=== PATIENT | female | born 1940 | race Caucasian/White ===

== ENCOUNTER 2016-11-06 09:10 | Inpatient (IN) | payer MEDICARE, BC, OTHER ==
[~2016-11-06] VITALS: Ht 152.4 cm; Wt 63.3 kg
[2016-11-06] VITALS (12 sets, daily range): BP systolic 70–180; BP diastolic 30–78
[2016-11-06] MEDS ORDERED: NS 500 ML IV ONE (09:30)
[2016-11-06] MEDS ORDERED: METO1TAB7 PO (10:15)
[2016-11-06] MEDS ORDERED: METH1TAB40 PO (10:15)
[2016-11-06] MEDS ORDERED: ATOR1TAB21 PO (10:15)
[2016-11-06] MEDS ORDERED: ASPI81TA85 PO (10:15)
[2016-11-06] MEDS ORDERED: ALEV220T26 PO (10:15)
--- NOTE | 2016-11-06 10:15 | REP ---
CT study brain without contrast: History: Altered mental status. CT findings: Digital hog trader radiograph is unremarkable. Bone window settings demonstrate an intact bony calvarium. There is fairly heavy vascular calcification in the distal vertebral and distal carotid arteries. There is mild to moderate diffuse cerebral atrophy. There is an old lacunar infarct in the basal ganglia on the left. Prominent small vessel atherosclerotic low density changes are seen in the periventricular white matter of the frontal lobes bilaterally. There is no evidence of acute infarction. No hemorrhage is seen. No extra-axial fluid collection or midline shift is seen. There is no evidence of intracranial mass. Impression: Vascular calcification, diffuse moderate atrophy, small vessel changes, old lacunar infarct in the left basal ganglia. No acute intracranial lesion seen. Signed by Primo Boyce MD 11/06/2016 06:01 P
[2016-11-06 10:58] LABS: ADD MANUAL DIFFER YES; DIFF SLIDE NUMBER 146; MEAN CORPUSCULAR HEMOGLOBIN 31.2 pg (27.0-33.0); MEAN CORPUSCULAR VOLUME 89.4 fl (80.0-96.0); RED CELL DISTRIBUTION WIDTH 13.6 % (11.5-14.5); WHITE BLOOD COUNT 14.8 K/mm3 (4.0-10.0)
[2016-11-06 11:01] LABS: ALBUMIN 2.9 GM/DL (3.2-5.2); ALBUMIN/GLOBULIN RATIO 0.91 (1.00-1.93); BILIRUBIN,DIRECT 0.4 MG/DL (0.0-0.2); BILIRUBIN,TOTAL 1.3 MG/DL (0.2-1.0); CALCIUM LEVEL 9.3 MG/DL (8.8-10.2); CREATININE FOR GFR 2.64 MG/DL (0.55-1.02); GLOMERULAR FILTRATION RATE 18.6 (>39); POTASSIUM SERUM 3.3 MEQ/L (3.5-5.1); TOTAL PROTEIN 6.1 GM/DL (6.4-8.2)
[2016-11-06 11:25] LABS: PLATELET COUNT, AUTOMATED 91 k/mm3 (150-450)
[2016-11-06 11:29] LABS: BANDS 5 % (< 11)
[2016-11-06 11:30] LABS: DOHLE BODIES 1+
[2016-11-06 11:31] LABS: ANISOCYTOSIS 1+; GIANT PLATELETS 1+; TOXIC GRANULATION 1+
[2016-11-06] MEDS ORDERED: LORazepam 2 MG/ML VIAL (J2060) IV STA ×2 (12:30→15:03)
[2016-11-06] MEDS ORDERED: LevoFLOXacin IV 500 MG in APPROPRIATE DILUENT 1 EA IV ONE (12:30)
[2016-11-06 14:00] LABS: VENOUS BASE EXCESS -8.8 (-2.0-2.0); VENOUS O2 SATURATION 76.2 % (60.0-80.0); VENOUS PARTIAL PRESSURE CO2 28.8 mmHg (38.0-50.0); VENOUS PARTIAL PRESSURE O2 41.7 mmHg (30.0-50.0); VENOUS TOTAL CO2 16.2 MEQ/L (24.0-28.0)
[2016-11-06] MEDS ORDERED: ONDANSETRON 4MG/2ML VIAL (J2405) IV PRN (14:00)
[2016-11-06] MEDS ORDERED: SODIUM CHLORIDE 0.9% 1000 ML IV ONE (14:00)
[2016-11-06] MEDS ORDERED: HEPARIN SOD (PORCINE) 5000 UNITS/ML VIAL SC SCH (14:00)
--- NOTE | 2016-11-06 14:15 | REP ---
PORTABLE CHEST: AP portable view of the chest is performed. There appears to be bilateral interstitial fibrosis. No acute infiltrate is seen. Heart is normal in size. There is calcification of the thoracic aorta. Mediastinal silhouette is otherwise unremarkable. IMPRESSION: No evidence of acute infiltrate. Signed by Deonte Duncan MD 11/06/2016 05:42 P
[2016-11-06 14:57] LABS: ABG pH (ARTERIAL) 7.465 UNITS (7.350-7.450)
[2016-11-06 14:58] LABS: ABG BASE EXCESS -6.6 (-2.0-2.0); ABG HCO3 14.8 MEQ/L (22.0-26.0); ABG PARTIAL PRESSURE O2 62.1 mmHg (75.0-100.0); ABG TOTAL CO2 15.4 MEQ/L (23.0-31.0)
[2016-11-06] MEDS ORDERED: NS 1,000 ML IV SCH (15:00)
[2016-11-06 15:51] LABS: RETIC HEMOGLOBIN CONTENT CHr 31.3 PG (24-36); RETICULOCYTE % 1.6 % (0.5-1.5)
[2016-11-06] MEDS ORDERED: POTASSIUM CHLORIDE 10 MEQ SR TABLET PO ONE (16:00)
--- NOTE | 2016-11-06 16:08 | REP ---
Renal ultrasound: The kidneys are in the low normal size range. The right kidney measures 9.3 x 3.4 x 4.1 cm. Left kidney measures 9.0 4.0 x 4.8 cm. There is no hydronephrosis on the right. There is left hydronephrosis. There is no calculus or mass in the right and the left kidneys. There is a right renal upper pole cyst measuring 1.4 cm in diameter. There is a right renal lower pole cyst measuring 1.4 cm in diameter. There is a left renal lower pole cyst measuring 2.0 cm in diameter. The bladder is adequately distended. No bladder wall masses or polyps are identified. Impression: Left hydronephrosis. No right hydronephrosis. Bilateral renal cortical cysts. Both kidneys are in the low normal size range. Signed by Deonte Jacobs MD 11/06/2016 04:00 P
[2016-11-06 16:11] LABS: REASON FOR REVIEW COMPREHENSIVE REVIEW
[2016-11-06 18:30] LABS: CREATININE FOR GFR 2.87 MG/DL (0.55-1.02); GLOMERULAR FILTRATION RATE 16.9 (>39); POTASSIUM SERUM 4.1 MEQ/L (3.5-5.1)
--- NOTE | 2016-11-06 20:50 | HPE ---
DATE OF ADMISSION: 11/06/2016 CHIEF COMPLAINT: Altered mental status. HISTORY OF PRESENT ILLNESS: This is a 76-year-old female with an unknown past medical history presenting into the emergency room (ER) for altered mental status. The patient was accompanied with her son. Came via ambulance this morning after she was found in her bed awake but not following commands, or speaking with feces all around her. The son states that the day before they were doing activities with no issues, ambulating around the neighborhood, doing groceries, doing laundry with no problems. The son states that after he left at 4 p.m. he did not see her again until this morning, when he went to see her around 8 a.m. The son states that the patient recently moved from [place], [place], about 2 months ago to live closer to the son near here in [place], [place]. The son states that she moved down here because she has been having episodes of dementia. He noticed a cognitive decline in the last 5 years after her . The son denies any knowledge of any past medical history on this patient, and the patient is unable to give us a history. REVIEW OF SYSTEMS: Unattainable because patient has altered mental status. PAST MEDICAL HISTORY: Unattainable because of the patient's altered mental status, and son is not sure. PAST SURGICAL HISTORY: Unattainable. ALLERGIES: No known drug allergies. SOCIAL HISTORY: . Lives alone with her dog. Was a past smoker. Quit about 40 years ago. Unknown how long she was smoking, but she used to smoke a pack a day. HOME MEDICATIONS: - aspirin 81 mg by mouth daily - atorvastatin calcium 20 mg daily - methocarbamol 500 mg tablet every 8 hours as needed for back pain - metoprolol succinate 50 mg by mouth daily - naproxen sodium 220 mg tablet as needed for pain VITAL SIGNS: Temperature 99.1, pulse 96, respiratory rate 22, blood pressure 119/56 (77), pulse oximetry 96 on room air. PHYSICAL EXAMINATION: GENERAL: Patient does not look in any acute distress, but is not alert and oriented times three. HEENT: Atraumatic, normocephalic. Pinpoint pupils that are slightly reactive to light. Normal sclerae. Mouth: Dry mucosa. CARDIAC: S1, S2 sounds are present, faint heart sounds. No murmurs, gallops, or rubs appreciated. LUNGS: Clear to auscultation bilaterally but the patient is tachypneic. No wheezing or crackles appreciated. ABDOMEN: Positive bowel sounds on all four quadrants. Soft, nondistended, nontender. EXTREMITIES: 1+ pulses appreciated peripherally bilaterally. No peripheral edema appreciated. SKIN: Dry skin. No breaks or cuts or lacerations appreciated on the extremities. LABORATORY DATA: In the emergency room (ER), WBCs of 14.8, hemoglobin of 14.4, hematocrit of 41.6 , a platelet of 91. A VBG was obtained, the pH is 7.34, pCO2 of 28.8, pO2 of 41.7. Chemistry was obtained: Sodium of 140, a potassium of 3.3, a chloride of 104, carbon dioxide of 18, BUN of 43, a creatinine of 2.64, a fasting glucose of 92, a calcium of 9.3, a total bilirubin of 1.3, a direct bilirubin of 0.4, an AST of 29, an ALT of 15, an alkaline phosphatase of 118, a total creatine kinase of 943 , a CK-MB of 9.2, a troponin of 0.06, a total protein of 6.1, an albumin of 2.9, a lactic acid of 6.5. Urinalysis: Pertinent positives are urine protein of 2+, urine blood of 1+, urine leukocytes esterase of trace, urine WBC of 16, a urine R B C of 4, a urine bacteria of 1+, urine squamous epithelial cells of 0. IMAGING: A head CT was reviewed and impression stated: Vascular calcification, diffuse moderate atrophy, small vessel changes, old lacunar infarct in the left basal ganglia, no acute intracranial lesion seen. The chest x-ray showed no evidence of acute infiltrate and was reviewed by me. An EKG was obtained in the ER, it showed sinus, but irregular rhythm. The EKG has yet to be reviewed. ASSESSMENT AND PLAN: This is a 76-year-old female with unknown past medical history presenting with dehydration and altered mental status. 1. Altered metabolic encephalopathy due to UTI and acute renal failure. We will also be getting an ammonia level, a toxicology screen to see salicylate levels and acetaminophen levels, a TSH, a B12, an arterial blood gas, a urine culture, a blood culture. MRI Brain if stable. Treat underlying infection, supportive care with intravenous fluids for mild rhabdo and acute kidney failure. Sitter. 2. Acute Kidney injury with mild rhabdomyolysis and mild metabolic acidosis. unknown baseline creatinine. We are assuming that this is an acute renal injury. check urine myoglobin, r/o obstructive cause with renal ultrasound to rule out kidney stones or hydronephrosis. Hurd catheter for critical patient monitoring. strict i/o. monitor respiratory status on intravenous fluids to prevent fluid overload. May need nephrology consultation if no significant improvement. Monitor for hyperkalemia, respiratory distress, worsening metabolic acidosis, worsening encephalopathy, oliguria/anuria. Avoid nephrotoxins, and renally dose all medications. 3. Sepsis due to Urinary Tract Infection present on admission. await urine and blood culture results. CXR shows no infiltrate. Quinolone for now due to PCN an PCN cross reactors allergy. Change antibiotics according to culture results and clinical status. If worsens, may need to change to broader spectrum antibiotics. Renally dose all antibiotics. 4. Thrombocytopenia most likely due to sepsis. no overt signs of bleeding. avoid heparin products. monitor for decompensation and signs of DIC. may need to transfuse platelets if going for invasive procedures and <30,000, or bleeding with plts<10,000. 5. Deep venous thrombosis (DVT) prophylaxis. We have put thromboembolism deterrents (TEDs) and [place]. CODE STATUS: unknown. no prior discussion between patient and pt's son in the past regarding advance directive. In light of severity of illness, will need to be addressed by Hospitalist Attending in the morning KEVIN. My preceptor for this patient encounter was Dr. Pilar Cristobal. The preceptor was physically present in the building during the encounter and was fully available. As needed, all aspects of the patient interview, examination, medical decision making process, and medical care plan development were reviewed and approved by the preceptor. The preceptor is aware and concurs with the plan as stated in the body of this note and will attest to such by his/her cosignature. MARKIE
[2016-11-06] MEDS ORDERED: DEXTROSE 50% 50 ML SYRINGE As Ordered ONE (20:58)
[2016-11-06] MEDS ORDERED: DEXTROSE 50% 50 ML SYRINGE IV STA ×2 (20:59→23:00)
[2016-11-06] MEDS: HEPARIN SOD (PORCINE) 5000 UNITS/ML VIAL SC SCH (21:00)
[2016-11-06] MEDS: LACTULOSE 20 GM/30 ML SYRUP UD PO SCH (21:19)
[2016-11-06 21:22] LABS: ABG HCO3 11.6 MEQ/L (22.0-26.0); ABG PARTIAL PRESSURE CO2 21.9 mmHg (35.0-45.0); ABG PARTIAL PRESSURE O2 66.2 mmHg (75.0-100.0); ABG STANDARD HCO3 15.1 MEQ/L (22.0-26.0); ABG TOTAL CO2 12.2 MEQ/L (23.0-31.0)
[2016-11-06] MEDS ORDERED: VANCOMYCIN HCL 750 MG, VIAL MATE ADAPTER 1 EACH in D5W 250 ML IV SCH (21:45)
[2016-11-06] MEDS: PIPERACILLIN/TAZOBACTAM SOD 2.25 GM in D5W MINI-BAG PLUS 50 ML IV SCH (22:00)
[2016-11-06] MEDS ORDERED: VANCOMYCIN INTERMITTENT/PULSE DOSING BY CLINICAL PHARMACIST PER DOSING PROTOCOL XX SCH (22:15)
[2016-11-06] MEDS ORDERED: SODIUM BICARBONATE 8.4% INJ 50 ML SYRINGE As Ordered ONE (22:52)
[2016-11-06] MEDS ORDERED: NS 1,000 ML IV ONE (23:00)
[2016-11-06] MEDS ORDERED: SODIUM BICARBONATE 8.4% INJ 50 ML SYRINGE IV STA (23:00)
--- NOTE | 2016-11-06 23:12 | PHACANCOPD ---
PHARMACY VANCOMYCIN DOSING Pt Demographics Demographics Patient Age:76 , Weight:57.500 , Gender: female Adjusted Body Weight Date: 11/06/16, Adjusted Body Weight: [57.5] Kg ACTUAL WT Vancomycin Vancomycin indication: SEPSIS Vancomycin Target Ranges: 15-20 mcg/ml Vancomycin Load Y/N: Yes Load Dose Date Time Vancomycin Load Dose: 1 GM Date: 11/07 Time: 12MID Vancomycin Dose Date: 11/06/16. Current Vancomycin Dose: [INTERMITTENT] Intermittent Dosing?: Yes Labs Labs Laboratory Tests 11/06/16 10:25 Red Blood Count 4.66, Mean Corpuscular Volume 89.4, Mean Corpuscular Hemoglobin 31.2, Mean Corpuscular Hemoglobin Concent 35.0, Red Cell Distribution Width 13.6 11/06/16 17:51 Calcium Level 9.0, Total Creatine Kinase 1816 #H Micro Microbiology 11/06/16 Blood Culture, Received Pending 11/06/16 Blood Culture, Received Pending 11/06/16 Gastrointestinal Tract Panel (PCR), Received Pending 11/06/16 Urine Culture, Received Pending Creatinine Clearance Date:11/06/16. Creatinine Clearance: [14.7]CALCULATED. Pending Labs RANDOM VANCOMYCIN FOR 11/07@1200 Assessment and Plan Maintaining Current Dose?: Yes Reason for dose change: No Dose Change Pharmacist Note Pharmacist Note Date: 11/06/16. Pharmacist note:76YPF 5',57.5 KG SCR=2.87,CALCULATED CRCL=14.7, ADMITTED TODAY D/T AMS.ABX tx begun empirically d/t WBC14.8.Initially levofloxacin was ordered, but was subsequently d/c and changed to PIP/TAZO 2.25 q8h and Vancomycin per pharmacy consult. Vancomycin 1 gm ordered for 12 mid x 1 dose and will continue with intermittent dosing protocol for now: Vanco random is ordered for 12noon 11/07;will continue to follow [facility] Nov 06, 2016 23:12
[2016-11-07] VITALS (18 sets, daily range): BP systolic 89–166; BP diastolic 50–85
[2016-11-07] MEDS ORDERED: VANCOMYCIN HCL 1,000 MG, VIAL MATE ADAPTER 1 EACH in D5W 250 ML IV ONE ×3
[2016-11-07] MEDS ORDERED: SODIUM CHLORIDE IV SCH (00:45)
[2016-11-07] MEDS ORDERED: D10W IV SCH (00:45)
[2016-11-07 02:14] LABS: CALCIUM LEVEL 7.3 MG/DL (8.8-10.2); CREATININE FOR GFR 2.9 MG/DL (0.55-1.02); GLOMERULAR FILTRATION RATE 16.7 (>39); POTASSIUM SERUM 2.7 MEQ/L (3.5-5.1)
[2016-11-07] MEDS ORDERED: KCL 10MEQ IN 100ML SWI (KRUN) 10 MEQ in APPROPRIATE DILUENT 1 EA IV ONE ×2 (02:45)
[2016-11-07] MEDS: PIPERACILLIN/TAZOBACTAM SOD 2.25 GM in D5W MINI-BAG PLUS 50 ML IV SCH ×2 (05:19→14:44)
[2016-11-07 05:50] LABS: ALBUMIN 2.2 GM/DL (3.2-5.2); ALBUMIN/GLOBULIN RATIO 0.63 (1.00-1.93); CALCIUM LEVEL 7.5 MG/DL (8.8-10.2); CREATININE FOR GFR 3.03 MG/DL (0.55-1.02); GLOMERULAR FILTRATION RATE 15.9 (>39); POTASSIUM SERUM 3.3 MEQ/L (3.5-5.1); TOTAL PROTEIN 5.7 GM/DL (6.4-8.2)
[2016-11-07 05:52] LABS: ADD MANUAL DIFFER YES; DIFF SLIDE NUMBER 56; MEAN CORPUSCULAR HEMOGLOBIN 31.4 pg (27.0-33.0); MEAN CORPUSCULAR HGB CONC 35.5 g/dl (32.0-36.5); MEAN CORPUSCULAR VOLUME 88.6 fl (80.0-96.0); RED CELL DISTRIBUTION WIDTH 13.9 % (11.5-14.5); WHITE BLOOD COUNT 20.1 K/mm3 (4.0-10.0)
[2016-11-07 06:00] LABS: BILIRUBIN,TOTAL 1.2 MG/DL (0.2-1.0)
[2016-11-07 06:13] LABS: PLATELET COUNT, AUTOMATED 40 k/mm3 (150-450)
[2016-11-07 06:26] LABS: BANDS 7 % (< 11)
[2016-11-07 06:27] LABS: GIANT PLATELETS 1+
[2016-11-07 06:28] LABS: TOXIC GRANULATION 1+
[2016-11-07 06:29] LABS: ANISOCYTOSIS 1+; DOHLE BODIES 1+
[2016-11-07] MEDS: KCL 10MEQ IN 100ML SWI (KRUN) 10 MEQ in APPROPRIATE DILUENT 1 EA IV SCH ×4 (06:39→07:49)
[2016-11-07 08:07] LABS: INR 1.53
[2016-11-07] MEDS: HEPARIN SOD (PORCINE) 5000 UNITS/ML VIAL SC SCH (08:39)
[2016-11-07] MEDS: LACTULOSE 20 GM/30 ML SYRUP UD PO SCH (08:40)
[2016-11-07] MEDS ORDERED: PANTOPRAZOLE 40MG INJ (PROTONIX) (C9113) IV SCH (09:00)
[2016-11-07] MEDS ORDERED: LevoFLOXacin IV 250 MG in APPROPRIATE DILUENT 1 EA IV SCH (09:00)
[2016-11-07] MEDS ORDERED: VANCOMYCIN HCL 1,000 MG, VIAL MATE ADAPTER 1 EACH in D5W 250 ML IV SCH (10:00)
[2016-11-07 10:30] LABS: MAGNESIUM LEVEL 1.7 MG/DL (1.8-2.4)
[2016-11-07] MEDS ORDERED: KCL 20MEQ IN D5/0.45NS 1000ML 1,000 ML IV SCH (10:30)
[2016-11-07] MEDS: MAG SULF 1GM/100ML (MAG RUN) 1 GM in APPROPRIATE DILUENT 1 EA IV SCH ×2 (11:21→12:33)
--- NOTE | 2016-11-07 11:48 | REP ---
CT ABDOMEN AND PELVIS WITHOUT IV CONTRAST: CT abdomen and pelvis performed without oral or IV contrast. Sagittal and coronal reconstruction images are performed. Visualized lung bases demonstrate small bilateral pleural effusions with adjacent bibasilar atelectasis/ infiltrate. The liver is grossly unremarkable. Tiny gallstones are seen in the gallbladder. The spleen is grossly unremarkable. Adrenal glands appear diffusely thickened bilaterally. Pancreas is grossly unremarkable. Right kidney demonstrates no hydronephrosis. There appears to be a subcentimeter intrarenal calculus in the lower pole of the right kidney. There is a calcification in the region of the right renal hilum may be vascular. There is moderate left hydronephrosis. This is caused by a 7 mm stone in the proximal left ureter. Initial renal calculus in the lower pole of the left kidney is less than 1 cm in diameter. There is moderate atherosclerotic calcification of the abdominal aorta with borderline aneurysmal dilatation at 3 cm. I see no gross adenopathy. There is no free air or free fluid. No definite bowel wall thickening is seen. There is moderate dilatation of multiple small bowel loops most consistent with an ileus. Hurd catheter is seen in a collapsed urinary bladder. There are a few diverticula of the sigmoid colon. IMPRESSION: 7 mm calculus, proximal left ureter causing moderate left hydronephrosis. Intrarenal calculus is also seen both on the right and on the left. There are small bilateral effusions with mild adjacent bibasilar atelectasis/infiltrate. Moderately dilated small bowel loops probably represent an ileus. Tiny gallstones in the gallbladder. Signed by Deonte Duncan MD 11/07/2016 02:24 P
--- NOTE | 2016-11-07 11:50 | REP ---
CT study of the chest without IV contrast: History: Shortness of breath. Altered mental status. Comparison chest x-ray November [address] findings: There are small bilateral pleural effusions. Cardiomegaly is observed with fairly extensive coronary artery vascular calcification. No hilar adenopathy is seen. There are two precarinal lymph nodes noted, one on the right and one on the left. The right paratracheal lymph node measures 10 x 12 mm and the left 19 x 11 mm. There are smaller AP window region lymph nodes. These lymph nodes are not felt to be definitely enlarged. No axillary or other extrathoracic mass or adenopathy is seen. No infiltrate or pulmonary mass lesion is seen. There is mild bilateral discoid atelectasis. No bony destructive lesion is seen. There is mild old appearing wedging in one of the upper lumbar vertebrae. Impression: Prominent vascular calcification. Cardiomegaly. Small bilateral pleural effusions. Bibasilar subsegmental discoid atelectatic changes. Signed by Primo Boyce MD 11/07/2016 03:20 P
--- NOTE | 2016-11-07 13:44 | CR ---
DATE OF CONSULTATION: 11/07/2016 REQUESTING PHYSICIAN: Cristóbal Malik MD CONSULTING PHYSICIAN: Kati Maher MD REASON FOR CONSULTATION: Management of acute kidney injury, electrolyte abnormalities and metabolic acidosis. NOTE: History was obtained from the patient's chart and from the primary medical team. The patient was unable to provide any reliable history to me at this time. Silvia Teresa is a 76-year-old female with a past medical history of progressive cognitive decline and dementia going on for the last 5 years almost. She recently moved from [place], [place] to the [facility] about two months ago to live close to her son. She was brought into the emergency room yesterday after she was found down on the floor by her son. She was obtunded, confused. She was covered with feces all around as reported by the son. Before finding her on the ground yesterday, the patient was found to be doing her activities of daily life about two days ago. Her son usually checks on her everyday. When the patient arrived in the emergency room, she was found to be septic with leukocytosis, low grade fever spike, and acute renal failure with a creatinine of 2.6, baseline renal function is not known. The patient also had a high lactate level of 6.5 on admission. She was started with IV fluid hydration. She was empirically started on IV antibiotics, which was initially Levaquin, but later on she was started on Zosyn and vancomycin last night. The patient kept on getting more and more tachycardic, lactate level did not improve. Patient got a renal ultrasound which showed left sided hydronephrosis and preliminary blood cultures today morning came back positive for gram negative rods. The nephrology service was called for further help in the management of acute renal failure along with left sided hydronephrosis, metabolic acidosis and sepsis. PAST MEDICAL HISTORY: No known past medical history. Patient is unable to provide any medical history at t his time. She is confused and obtunded and family members are not present at the bedside. PAST SURGICAL HISTORY: Unknown past surgical history at this time. ALLERGIES: No known drug allergies. FAMILY HISTORY: No known family history at this time. SOCIAL HISTORY: Patient is . She recently moved from [place], [place] to [place], [place] to live close to her son about two months ago. Patient is an ex-smoker, she quit about 40 years ago. There is no history of illicit drug abuse or alcohol abuse. HOME MEDICATIONS: Her home medications include aspirin 81 mg daily, atorvastatin 20 mg daily, methocarbamol 500 mg every 8 hours, metoprolol 50 mg daily and naproxen 200 mg daily as needed for pain. REVIEW OF SYSTEMS: Patient is unable to provide any reliable review of systems to me; however, she does complain of weakness. She denies any chest pain or shortness of breath. She denies any pain in the abdomen at this time. The rest of the review of systems is unobtainable. PHYSICAL EXAMINATION: GENERAL: The patient is awake, in moderate respiratory distress. She is tachypneic. VITAL SIGNS: Temperature this morning is 98.8 degrees Fahrenheit, blood pressure 130/60, pulse is 126, respiratory rate of 46, saturating 93% on nasal cannula at 4 liters. INTAKE AND OUTPUT: Urine output recorded as 350 mL yesterday, 138 mL so far today since overnight. Weight on the bed scale is 63.3 kg. OBJECTIVE: VITAL SIGNS: Temperature is 98.5 degrees Fahrenheit, blood pressure is 141/64, pulse 100, respiratory rate of 18, saturating 94% on room air. INTAKE AND OUTPUT: There is no urine output recorded. Bed scale weight is not available. HEAD/NECK: Extraocular muscles intact. Pupils equally round and reactive to light. Mucous membranes are slightly dry. Neck is supple. There is no jugular venous distention (JVD). CARDIOVASCULAR: S1, S2, tachycardia. No murmur, rub or gallop. RESPIRATORY: Chest is clear to auscultation bilaterally, however she is tachypneic, but otherwise there are no rales or rhonchi. ABDOMEN: Soft. Positive bowel sounds. Old surgical scars in the abdomen. No organomegaly was appreciated. EXTREMITIES: The patient has cyanosis of her bilateral upper and lower extremities, fingertips and toes. Pulses are 2+. There is no edema of the extremities. POWER PRESS TENDER: Patient is confused and obtunded, otherwise she follows commands. SKIN: She has dry skin with decreased skin turgor. Otherwise, no rashes. LYMPH NODES: No significant cervical, axillary or inguinal lymphadenopathy. LAB REVIEW: CBC showed a WBC of 20.1 hemoglobin is 12.5, platelets are 40, INR is 1.53. Urinalysis showed 2+ protein. Trace leukocyte esterase. WBC of 16. RBC of 4. Bacteria 1+. ABG last night showed a pH of 7.34, pCO2 of 21, pO2 of 66, bicarb is 11.6, oxygen saturation of 92.6%. BMP showed sodium 141, potassium 3.3, chloride 111, bicarb is 17, anion gap is 13, BUN 53, creatinine 3.03, GFR 15.9, glucose 128, lactate was 6.6 last night, calcium was 7.5, magnesium 1.7, total bilirubin 1.2, AST 73, ALT 22, total creatinine kinase is 2436, Troponin 0.52, albumin is 2.2. Toxicology: Salicylate, Tylenol and alcohol levels are negative. Microbiology: Blood culture preliminary showed gram negative rods. IMAGING: A CAT scan of the abdomen and pelvis was done which showed 7 mm calculus in the proximal left ureter causing moderate left sided hydronephrosis. Intrarenal calculus was also seen, both on the right and left side. Moderately dilated small bowel loops presenting an ileus and tiny gallstones in the gallbladder. CAT scan of the chest done today morning showed prominent vascular calcifications, cardiomegaly, small bilateral pleural effusion and bibasilar subsegmental discoid changes. CURRENT INPATIENT MEDICATIONS: The patient's medications were all reviewed by me. She was on 10% dextrose. IV fluids were changed D5 half normal saline plus 20 mEq of KCL at 125 mL per hour. She was given a dose of magnesium sulfate 1 gram IV times two doses. She is on Zosyn 2.25 grams IV every 8 hours, vancomycin was also given 1 gram IV times one dose last night. ASSESSMENT: 76-year-old female with past medical history of dementia. No other known medical history on presentation. This admission to ICU with severe sepsis secondary to gram negative ryann bacteremia, left sided hydronephrosis, metabolic acidosis and mild rhabdomyolysis. PLAN: 1. Severe sepsis secondary to gram negative ryann bacteremia. I have changed the IV fluids to half normal saline plus 20 mEq of KCL at 125 mL per hour. Continue aggressive fluid hydration. I also got pulmonary critical care service on board. Patient would probably need a central line with CVP monitoring and aggressive IV fluid hydration. Continue empiric IV treatment with Zosyn and vancomycin. 2. Left sided hydronephrosis. Patient has a 7 mm stone in the left ureter causing left sided hydronephrosis. Urine culture is still pending, but most likely patient is developing left sided nephritis because of obstruction and if that is causing the severe sepsis, then the patient emergently needs a percutaneous nephrostomy to be done today to relieve the obstruction and drain the pus. Case was already discussed with the hospitalist who have discussed this case with urology and interventional radiology and patient is pending placement of left sided percutaneous nephrostomy tube by urology. 3. Acute renal failure. The patient's baseline renal function is not know. Acute renal failure is most likely secondary to a combination of dehydration, volume depletion, severe sepsis, left sided hydronephrosis. Continue aggressive IV fluid hydration. Continue the Hurd catheter at this time. The patient is oliguric at this time. If renal function does not start improving after placement of the percutaneous nephrostomy tube, I would have a low threshold to start CRRT in this patient who has severe sepsis and metabolic acidosis. 4. Normal anion gap metabolic acidosis. It is secondary to a combination of acute renal failure and lactic acidosis. PH on the ABG last night was 7.34. There is no need of IV bicarb administration at this time. Continue the IV hydration and treatment of sepsis. 5. Hypokalemia. Potassium level was 2.7 overnight. IV potassium was given. Potassium was still low at 3.3. I have added the potassium to IV fluids. I would be a little bit conservative giving aggressive IV potassium to this patient with acute renal failure. 6. Hypomagnesemia. Magnesium was already ordered by the primary team. She will get magnesium sulfate 1 gram IV times two doses. 7. Rhabdomyolysis. The patient has mild rhabdomyolysis because she was found on the floor covered in feces. CPK level is 2436, which is mild. Continue the IV fluid hydration and continue to monitor the CPK levels. 8. Metabolic encephalopathy. It is secondary to a combination of acute renal failure, severe sepsis and electrolyte abnormalities. Continue the current aggressive management of severe sepsis. Mental status is expected to improve to baseline after sepsis starts improving and the patient's renal function starts improving. 9. Thrombocytopenia. There is no active source of bleeding at this time, however platelet count is 40,000 and she is going for a procedure, so 1 unit of platelet transfusion was ordered today. 10. Elevated Troponin levels. Patient's Troponin is 0.52. Baseline cardiac history is unknown. Patient is in sepsis and tachycardic at this time. Most likely it is stress induced leakage of Troponins. Continue to trend Troponins at this time. No need of heparin drip at this time. 11. Glycemic control. Patient was hypoglycemic overnight. She was started on D10. Hypoglycemia is most likely secondary to sepsis. I have changed to IV fluid to D5 half normal saline with 20 mEq of KCL. Patient has a mild amount of ileus on the CAT scan. She is not being fed at this time. Thank you for involving us in the care of this patient. We shall be happy to follow the patient along with you tomorrow morning. Total critical care time spent in the management of this patient in the ICU today was 1 hour.
--- NOTE | 2016-11-07 14:44 | IPNPDOC ---
Subjective Date Seen The patient was seen on 11/07/16. Subjective Chief Complaint/HPI The patient is a 76-year-old female admitted with a reason for visit of Acute Renal Failure. General: Denies: Chills, Night Sweats, Fatigue Constitutional: Denies: Chills, Fever, Malaise, Weakness Eyes: Denies: Pain, Vision change Pulmonary: Denies: Dyspnea, Cough Cardiovascular: Denies: Chest Pain, Palpitations Gastrointestinal: Denies: Nausea, Vomiting, Abdominal Pain Genitourinary: Denies: Dysuria Neurological: Denies: Weakness, Numbness, Incoordination Psych: Reports: Mood Normal, Memory Issues (orientated to person only) Objective Physical Examination General Exam: Positive: Alert, Cooperative, No Acute Distress Eye Exam: Positive: Conjunctiva & lids normal, EOMI, Negative: Sclera icteric, Ptosis ENT Exam: Positive: Atraumatic, Mucous membr. moist/pink, Pharynx Normal, Tongue Midline, Nares Patent Neck Exam: Positive: Supple Chest Exam: Positive: Clear to auscultation, Normal air movement, Negative: Rales, Rhonchi, Wheezing, Diminished Heart Exam: Positive: Tachycardic, Normal S1, Normal S2 Telemetry: Positive: No significant arrhythmia Abdomen Exam: Positive: Normal bowel sounds, Soft, Tenderness (some minor tenderness in LUQ), Negative: Hepatospenomegaly Extremity Exam: Positive: Normal pulses, Negative: Clubbing, Cyanosis, Edema Psych Exam: Positive: Mental status NL Assessment /Plan Problems (1) Sepsis Status: Acute Response to Treatment: Stable Problem Text: severe sepsis secondary to left 7mm kidney stone causing left sided hydronephrosis Preliminary blood cultures + for GNR Pt was started on levoquin on admission, has been d/c and changed to vancomycin and zosyn, will d/c vancomycin at this point in time and c/w zosyn pt is afebrile, white count 20.1 lactic acid remains elevated, pt. is receiving IV fluid hydration which we will continue pt. received platelet and FFP replacement in hopes of taking her to surgery soon for the blockage pts prognosis at this point in time remains guarded at best, conversation regarding this with son took place and the pt., she is DNR, son admits if her status does not improve, may consider RAG INSPECTOR (2) Altered mental status, unspecified Status: Acute Response to Treatment: Stable Problem Text: pt is orientated to person and place, but not time, states that the president is "Awilda" and that the year is 1989 suspect secondary to baseline dementia compounded by severe sepsis picture from left sided kidney stone and resulting left sided hydronephrosis will continue to monitor, hopefully will resolve once infection clears (3) Hydronephrosis Status: Acute Response to Treatment: Stable Problem Text: pelvic CT demonstrated 7 mm calculus in the proximal left ureter causing moderate left hydronephrosis suspect this is cause of her severe sepsis and GNR bacteremia pt on zosyn, have d/c levoquin and vancomycin afebrile with white count of 20.1 c/w IV fluid hydration pt once stable will obtain nephrostomy tube, nephrology on consult-greatly appreciate their recommendations (4) Acute renal failure Status: Acute Response to Treatment: Stable Problem Text: Unsure of baseline, likely in part to dehydration, volume depletion, hydronephrosis and severe sepsis current GFR meets requirements for severe CKD with GFR of 15.9 and creatine 3.03 Pt receiving IV fluid hydration rosenbaum catheter in place likely secondary to left 7 mm obstructing kidney stone and resulting left sided nephrosis causing severe sepsis nephrology consulted-greatly appreciate their recommendations-may consider continuous renal replacement therapy if pt's renal function does not improve after placement of percutaneous nephrostomy tube renal u/s showed left hydronephrosis, b/l renal cortical cysts, both kidneys are in the low normal size range. No right hydronephrosis. (5) Thrombocytopenia Status: Acute Response to Treatment: Stable Problem Text: platelets 41 this morning, received one unit of platelet transfusion suspect secondary to severe sepsis from kidney stone and hydronephrosis also received FFP hopefully will take pt to surgery soon for placement of percutaneous nephrostomy tube Have ordered DIC profile for further evaluation no active source of bleeding h/h stable (6) Tachycardia Status: Acute Response to Treatment: Stable Problem Text: pulse 126-130's suspect secondary to demand ischemia and severe sepsis pt denies any chest discomfort or palpitations will continue to monitor, should improve as infection abates (7) Tachypnea Status: Acute Response to Treatment: Stable Problem Text: respiratory rates in the 25-30 range suspect secondary to her severe sepsis from left sided kidney obstruction and resulting left sided hydronephrosis also in compensation for metabolic acidosis continue to monitor, suspect once infection improves, so will tachypnea less likely pneumonia/infectious related (8) Pleural effusion Status: Acute Response to Treatment: Stable Problem Text: CHEST CT demonstrated prominent vascular calcification, cardiomegaly, small b/l pleural effusions and bibasilar subsegmental discoid atelectatic changes pt denies being SOB pt is tachypneic however suspect this is secondary to her severe sepsis and attempt to compensate for metabolic acidosis pulmonolgy consulted-greatly appreciate their recommendations 94 % on 3L. c/w supplemental O2 (9) Hypokalemia Status: Acute Response to Treatment: Stable Problem Text: K 3.3 from 2.7 overnight, supplemental IV potassium given Potassium has been added to fluid hydration therapy Mg was also noted to be low, has been supplemented 1 gram IV x2, 1.7 today caution with over correction of potassium due to fragile nature of kidneys continue BMP for eval. (10) Rhabdomyolysis Status: Acute Response to Treatment: Stable Problem Text: total CK 2436 likely secondary to laying on the floor for unknown amount of time at home before son found her c/w IV fluid hydration and CPK level monitoring for resolution (11) Metabolic acidosis, normal anion gap (NAG) Status: Acute Response to Treatment: Stable Problem Text: secondary to her renal failure from the obstructing stone and elevated lactic acid ph 7.34 on last ABG with CO2 21.9, O2 66.2 and bicarb of 17 c/w IV hydration suspect resolution when sepsis improves (12) Hypoglycemia Status: Acute Response to Treatment: Stable Problem Text: pt was started on D5W due to hypoglycemia, this is potentially from her severe sepsis per nephrology recommendation- have changed IV fluid to D5 half normal saline with 20 mEq of KCL. glucose this morning 128 (13) DVT prophylaxis Status: Acute Response to Treatment: Stable Problem Text: SCD/TEDS Plan/VTE VTE Prophylaxis Ordered?: Yes Plan/Urinary Catheter Reason for insertion/continuin: Critical Pt monitoring VS, I&O, 24H, Fishbone Vital Signs/I&O Vital Signs Date Time Temp Pulse Resp B/P (MAP) Pulse Ox O2 Delivery O2 Flow Rate FiO2 11/07/16 08:00 Nasal Cannula 3.0 11/07/16 08:00 97.8 129 44 120/72 (88) 94 I&O- Last 24 Hours up to 6 AM 11/08/16 06:00 Intake Total 550 ml Output Total 0 ml Balance 550 ml Laboratory Data 24H LABS Laboratory Tests 2 11/06/16 13:30: Blood Gas Bicarbonate Standard 17.0, Venous Blood pH 7.345, Venous Blood Partial Pressure CO2 28.8L, Venous Blood Partial Pressure O2 41.7, Venous Blood Total Carbon Dioxide 16.2L, Venous Blood HCO3 15.4L, Venous Blood Oxygen Saturation 76.2, Venous Blood Base Excess -8.8L, Salicylates Level < 1.7L, Acetaminophen Level 2.1L, Ethyl Alcohol Level < 0.003 11/06/16 14:47: Blood Gas Bicarbonate Standard 19.0L, Arterial Blood pH 7.465H, Arterial Blood Partial Pressure CO2 21.0L, Arterial Blood Partial Pressure O2 62.1L, Arterial Blood Total CO2 15.4L, Arterial Blood HCO3 14.8L, Arterial Blood Base Excess - 6.6L, Arterial Blood Oxygen Saturation 93.3L 11/06/16 14:53: Lactic Acid Followup at 4 Hours 6.9*H, Ammonia 59H 11/06/16 15:12: Differential Slide Review Report, Differential Pathologist's Review COMPREHENSIVE REVIEW, Peripheral Blood Smear Path Consult PERIPHERAL SMEAR 11/06/16 15:13: Absolute Reticulocyte Count 77, Percent Reticulocyte Count 1.60H, Reticulocyte Hgb Content (CHr) 31.3 11/06/16 17:51: Anion Gap 15, Glomerular Filtration Rate 16.9L, Lactic Acid Level 5.1*H, Blood Urea Nitrogen 45H, Creatinine 2.87H, Sodium Level 141, Potassium Level 4.1#, Chloride Level 107, Carbon Dioxide Level 19L, Calcium Level 9.0, Total Creatine Kinase 1816#H, Creatine Kinase MB 16.5H, Creatine Kinase MB Relative Index 0.90 , Troponin I 0.09# 11/06/16 21:07: Blood Gas Bicarbonate Standard 15.1L, Arterial Blood pH 7.340L, Arterial Blood Partial Pressure CO2 21.9L, Arterial Blood Partial Pressure O2 66.2L, Arterial Blood Total CO2 12.2L, Arterial Blood HCO3 11.6L, Arterial Blood Base Excess - 12.0L, Arterial Blood Oxygen Saturation 92.6L 11/06/16 21:27: Bedside Glucose (Misc Panel) 147H 11/06/16 22:55: Bedside Glucose (Misc Panel) 79L 11/06/16 23:48: Bedside Glucose (Misc Panel) 155H 11/07/16 00:02: Lactic Acid Followup at 4 Hours 6.6*H 11/07/16 01:35: Anion Gap 11, Glomerular Filtration Rate 16.7L, Blood Urea Nitrogen 49H, Creatinine 2.90H, Sodium Level 141, Potassium Level 2.7#*L, Chloride Level 110H , Carbon Dioxide Level 20L, Calcium Level 7.3#L, Total Creatine Kinase 2358H, Creatine Kinase MB 18.8H, Creatine Kinase MB Relative Index 0.79, Troponin I 0.26#H 11/07/16 05:22: Neutrophils 77H, Band Neutrophils 7, Lymphocytes (Manual) 7L, Monocytes (Manual ) 2, Metamyelocytes 5H, Myelocytes 2H, Toxic Granulation 1+, Dohle Bodies 1+, Platelet Estimate MARKED DECREASE, Giant Platelets 1+, Anisocytosis 1+, Ovalocytes , Anion Gap 13, Glomerular Filtration Rate 15.9L, Blood Urea Nitrogen 53H, Creatinine 3.03H, Sodium Level 141, Potassium Level 3.3#L, Chloride Level 111H, Carbon Dioxide Level 17L, Calcium Level 7.5L, Aspartate Amino Transf (AST/SGOT) 73H, Alanine Aminotransferase (ALT/SGPT) 22, Total Creatine Kinase 2436H, Alkaline Phosphatase 94, Total Bilirubin 1.2H, Total Protein 5.7L, Albumin 2.2#L, Magnesium Level 1.7L, Creatine Kinase MB 22.9H, Creatine Kinase MB Relative Index 0.94, Troponin I 0.52#H, Albumin/Globulin Ratio 0.63L 11/07/16 07:05: Prothrombin Time 18.8H, Prothromb Time International Ratio 1.53 CBC/BMP Laboratory Tests 11/06/16 17:51 Calcium Level 9.0, Total Creatine Kinase 1816 #H 11/07/16 01:35 Calcium Level 7.3 #L, Total Creatine Kinase 2358 H 11/07/16 05:22 Calcium Level 7.5 L, Total Creatine Kinase 2436 H, Red Blood Count 3.98 L, Mean Corpuscular Volume 88.6, Mean Corpuscular Hemoglobin 31.4, Mean Corpuscular Hemoglobin Concent 35.5, Red Cell Distribution Width 13.9, Aspartate Amino Transf (AST/SGOT) 73 H, Alanine Aminotransferase (ALT/SGPT) 22, Alkaline Phosphatase 94, Total Bilirubin 1.2 H, Total Protein 5.7 L, Albumin 2.2 #L Microbiology Microbiology 11/06/16 Blood Culture, Received Pending 11/06/16 Blood Culture - Preliminary, Resulted 11/06/16 Gastrointestinal Tract Panel (PCR) - Final, Complete 11/06/16 Urine Culture, Received Pending GME ATTESTATION GME ATTESTATION My preceptor for this patient encounter was physically present in the building during the encounter and was fully available. As needed, all aspects of the patient interview, examination, medical decision making process, and medical care plan development were reviewed and approved by the preceptor. Preceptor is aware and concurs with the plan as stated in the body of this note and will attest to such by his/her cosignature. ATTENDING NOTE 76-year-old female who was admitted for severe sepsis secondary to obstructive uropathy from left sided hydronephrosis was admitted yesterday by my colleague and seen by myself this morning. Given the patient's severe sepsis, a urology consultation was obtained, and the patient was recommended for and scheduled to have a percutaneous nephrostomy tube today. Given the patient's critical condition, the procedure was deemed to be very high risk, and this was discussed with the patient's son Adis Teresa extensively by myself and Anesthesia. Unfortunately, the patient did lose her pulse, and was noted to be in ventricular tachycardia after being induced for the procedure. Please refer to the code sheet for full details of what was administered during this event. I did speak to the patient's son in the waiting room about Ms. Teresa's current clinical condition, and he stated that his mother would not want to be resuscitated further given the clinical scenario. He has decided to make the patient comfort measures only at this time. We will honor his wishes, and continue to provide supportive care. All questions and concerns were answered to Mr. Adis Teresa's satisfaction SONALI SANCHES DO Nov 07, 2016 14:44 JASWANT ROSALES MD Nov 07, 2016 19:12
[2016-11-07] MEDS ORDERED: VANCOMYCIN HCL 750 MG, VIAL MATE ADAPTER 1 EACH in D5W 250 ML IV SCH (15:00)
--- NOTE | 2016-11-07 15:41 | CCN ---
DATE: 11/07/2016 CRITICAL CARE NOTE: I was called to see this patient in the intensive care unit in light of sepsis. This 76-year-old female brought by emergency medical services (EMS), found obtunded in her home and covered with feces. She has been admitted, hydrated, and has begun to make small of urine. She remains obtunded, is able to respond to voice and answers simple questions. She is unable to elaborate on her past history. Medications suggest prior history of hypertension. OBJECTIVE: VITAL SIGNS: At bedside, temperature is 98, temperature maximum (T-max) for the past 24 hours 100.6, pulse rate 126, respirations 40, blood pressure 126/60. She is five liters positive on fluids since admission. HEENT: Her oral mucosa is dry. NECK: Supple. There is no meningismus. Jugular veins are flat. CARDIAC: Heart sounds are regular, rapid. RESPIRATORY: Breath sounds are coarse in the bases. No wheezing or adventitial breath sounds. Chest is symmetric. Moves minimally with respiratory effort. ABDOMEN: Soft with occasional bowel sounds. There is no palpable mass. EXTREMITIES: Are cool. Pulses diminished. DIAGNOSTIC STUDIES: White cell count is 20.1, hemoglobin 12.5, hematocrit 35.3, platelet count is 40,000. Differential white cell count shows 77% neutrophils and seven lymphocytes. An arterial blood gas showed a pH 7.34, pCO2 21, pO2 66. Sodium is 141, potassium 3.3, chloride 111, CO2 17, BUN 53, creatinine 3.03, glucose 128. Her lactic acid level was initially 5.1, most recent is 6.6. Albumin is 2.2. INR is 1.53. MICROBIOLOGY: Blood cultures were indicating gram-negative rods. IMAGING: Chest imaging shows a small left pleural effusion. Abdominal imaging a left hydroureter with a 7-mm stone. MEDICATIONS: On review of medications, she is currently receiving dextrose 5% (D5) half normal saline with 20 mEq of potassium chloride (KCl) at 125 an hour. Platelets are infusing. She is receiving Zosyn and vancomycin dose adjusted. She has been attended by the hospitalist service, consulted by nephrology, invasive radiology and urology. ASSESSMENT: The primary problem requiring critical attention is severe sepsis with bacteremia (gram-negatives) secondary, no doubt, to a urinary obstructive disease. Her fluid volume resuscitation has achieved some urine output. A percutaneous nephrostomy is scheduled as soon as blood products can be infused. She is receiving platelets at this time and has received broad-spectrum antibiotics which are appropriate pending formal cultures from her blood. Blood pressure has been acceptable to this point, but is waning and pressor therapy may need to be considered. Nephrology is monitoring her fluids and electrolytes. Given the severity of her sepsis, ulcer prophylaxis is indicated. I will initiates Protonix and order some additional laboratory studies for followup. Her family has been in and in conversation with the patient, have imposed limits on resuscitation. The patient's condition is critical. Prognosis is poor. One hour and 15 minutes were spent in the performance of bedside critical care and coordination exclusive of any time during procedures.
[2016-11-07] MEDS ORDERED: LIDOCAINE 2% MDV 20 ML VIAL As Ordered ONE (16:06)
[2016-11-07] MEDS ORDERED: ISOVUE-300 61% 50ML VIAL (Q9967) As Ordered ONE (16:07)
[2016-11-07 16:40] LABS: FIBRINOGEN 740 MG/DL (221-452); INR 1.43
[2016-11-07] MEDS ORDERED: fentaNYL 100 MCG/2 ML INJECTION (J3010) As Ordered ONE (17:42)
[2016-11-07] MEDS ORDERED: VASOPRESSIN INJ 20 UNITS/ML VIAL As Ordered ONE (18:05)
[2016-11-07] MEDS ORDERED: NS 500 ML IV ONE (18:15)
--- NOTE | 2016-11-07 18:19 | CR ---
DATE OF CONSULTATION: 11/07/2016 REQUESTING PHYSICIAN: Ania Malik MD REASON FOR CONSULTATION: Urosepsis with obstructing ureteral stone. HISTORY OF PRESENT ILLNESS: The patient is a 76-year-old female who was admitted through the emergency room yesterday, found obtunded, confused, and in her bed surrounded by feces. The patient has had progressive cognitive decline and dementia for the last 5 years, but this is very far from baseline. In the emergency room she was found to be septic with a low-grade fever, leukocytosis, and acute renal failure with a creatinine of 2.6. She had a high lactic acid level of 6.[address] scan of the abdomen and pelvis was done, and this showed a 7 mm left proximal ureteral stone and some intrarenal stones with moderate left hydroureteronephrosis. A urology consult was obtained. The patient was seen at the bedside in the intensive care unit (ICU) with her son present. Although she is more alert and oriented times today, she is still not a great historian and is not aware of who the bank president is or what year she was born. She denies, though, having any significant flank pain. She did have one kidney stone which passed spontaneously several years ago. She denies any gross hematuria or any irritative or obstructive voiding symptoms. PAST MEDICAL HISTORY: 1. High blood pressure. 2. Back pain. PAST SURGICAL HISTORY: 1. Appendectomy. 2. Hysterectomy. HOME MEDICATIONS: j Include: - aspirin - atorvastatin 20 mg - methocarbamol 500 mg as needed for back pain - metoprolol succinate 50 mg by mouth daily - naproxen. ALLERGIES: No known drug allergies. SOCIAL HISTORY She is . She was recently moved by her son from [place] to [place] to be closer to him. She quit smoking cigarettes 40 years ago. There was no history of illicit drug use or alcohol abuse. FAMILY HISTORY: Noncontributory. REVIEW OF SYSTEMS: The patient is unable to provide a reliable review of systems, but she does have some weakness and shortness of breath at this point. She, again, is not alert and oriented to person, place, and time. She thinks that she is in a hospital but in a different town PHYSICAL EXAMINATION: This is an elderly female lying in the intensive care unit with a nasal cannula and some shortness of breath, saturating at 93%. Her vital signs showed the temperature now at 98, and her maximal temperature was 99.5 at midnight. Her blood pressure is 96/50, her respiratory rate is 40, and her pulse is 114. Her head is atraumatic and normocephalic. Her eyes are pupils equal, round, and reactive to light (PERRL) and extraocular muscles intact (EOMI). Her neck is supple, and she has no significant supraclavicular or cervical adenopathy. Her heart has a regular rate and rhythm, and there were no rubs, gallops, or murmurs appreciated. Her lungs were clear to auscultation and percussion, but she is tachypneic: She has no significant costovertebral angle (CVA) tenderness on exam now, and her abdomen is soft and nondistended without any significant tenderness. Her extremities show no significant cyanosis, clubbing, or edema, and she has good pulses bilaterally. LABORATORY DATA: White blood count is 20.1, her hemoglobin and hematocrit are 12.5/35.3, and her platelets were low at 40. Her potassium was 3.3 after it was abnormally low at 2.7 early this morning. Her BUN is 53, and her creatinine is 3.03. Her creatine kinase and CK-MB and troponin are all elevated. A urinalysis showed 16 white blood cells and 4 red blood cells per high-power field with 1+ bacteria. Her preliminary blood cultures show gram-negative rods, and her urine cultures are pending. A CT scan of the abdomen and pelvis done without contrast on 11/07/2016 shows a 7 mm proximal left ureteral calculus causing moderate left hydronephrosis. There are also intrarenal calculi seen on both left and the right with small bilateral and mild basilar atelectasis versus infiltrates. She also has moderately dilated small bowel loops, representing an ileus and tiny gallstones. IMPRESSION: 1. Urosepsis with obstructive uropathy secondary to a 7 mm left proximal ureteral stone in a patient also with bilateral nonobstructing nephrolithiasis with blood cultures showing gram-negative rods and urine culture pending. 2. Acute renal failure with a creatinine of 3.03. 3. Underlying cognitive decline and dementia. PLAN: I discussed this with Dr. Malik, and I recommend an emergent left nephrostomy tube to be placed, to continue antibiotic coverage, and intensive care unit (ICU) management, and when and if the patient becomes stable in the future, plan surgical management for stone removal at that time. Thank you very much for this consultation. We will continue to follow this patient and be available as needed.
[2016-11-07 18:44] LABS: ABG BASE EXCESS -16.8 (-2.0-2.0); ABG DEVICE MECHAN. VENT; ABG HCO3 11.9 MEQ/L (22.0-26.0); ABG PARTIAL PRESSURE CO2 38.8 mmHg (35.0-45.0); ABG PARTIAL PRESSURE O2 290.7 mmHg (75.0-100.0); ABG STANDARD HCO3 11.7 MEQ/L (22.0-26.0); ABG TOTAL CO2 13.1 MEQ/L (23.0-31.0); ABG pH (ARTERIAL) 7.104 UNITS (7.350-7.450)
[2016-11-07] MEDS ORDERED: ONDANSETRON 4MG/2ML VIAL (J2405) IV PRN (19:00)
[2016-11-07] MEDS: MORPHINE 2 MG/ML 1ML SYRINGE IV PRN (19:32)
[2016-11-07] MEDS: LORazepam 2 MG/ML VIAL (J2060) IV PRN (22:23)
[2016-11-08] MEDS ORDERED: VASOPRESSIN INJ 20 UNITS/ML VIAL ONE (01:01)
[2016-11-08] MEDS: LORazepam 2 MG/ML VIAL (J2060) IV PRN ×4 (03:40→19:36)
--- NOTE | 2016-11-08 08:04 | ECGEPIP ---
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
--- NOTE | 2016-11-08 08:23 | ECGEPIP ---
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
--- NOTE | 2016-11-08 10:38 | ECHO ---
DATE OF PROCEDURE: 11/07/2016 AGE: 76 GENDER: Female HEIGHT: 67 inches WEIGHT: 138 pounds BODY SURFACE AREA: 1.73 ms PATIENT LOCATION: Inpatient, ICU REFERRING PHYSICIAN: Pilar Cristobal MD INDICATION: Abnormal EKG. 2-D MEASUREMENTS: RV: 3.5 cm LV: 3.7 cm Septum: 1.1 cm Posterior wall: 1.1 cm Aortic root: 2.8 cm LA: 3.2 cm LVEF: 55 - 60% DOPPLER MEASUREMENTS: AV: 1.3 m/s LVOT: 1.2 m/s MV-E: 70, A: 99, EA ratio: 0.71 Early mitral deceleration time: 194 ms E prime: 6, A prime 10, EE prime ratio: 11. RVSP: 38 mmHg IVC: 1.5 cm COMMENTS: Normal sinus rhythm/sinus tachycardia without intraventricular conduction disturbance. Technically, difficult study in light of the patient's body habitus, but diagnostically useful information was still obtained. Normal cardiac chamber sizes and wall thickness. On real-time imaging from the parasternal and apical projections, wall motion was symmetrical and normal. Mildly thickened mitral annulus with normal leaflet thickness and excursion with no posterior systolic buckling. Somewhat difficult to ascertain precise number of aortic cusps, but these appear slightly thickened, but with adequate cusp separation. Normal aortic root size. No apparent intracardiac mass or pericardial effusion. Color flow Doppler study taken from the parasternal and apical projections showed very mild mitral, no aortic and moderate tricuspid insufficiency. Guided continuous wave Doppler of her aortic valve showed a normal peak systolic velocity against LV outflow tract obstruction. Pulsed and continuous wave Doppler of her LV inflow tract taken from the apical four-chamber projection showed normal diastolic filling velocities against mitral stenosis. However, there was more prominent late diastolic/atrial dependent filling pattern. A degree of LV diastolic dysfunction was further confirmed using tissue Doppler of her mitral annulus, but current estimated mean left atrial pressure was within normal limits. We could not visualize her pulmonary valve. Guided continuous wave Doppler of her tricuspid valve allowed our estimation of her right ventricular systolic pressure (mildly increased). Her inferior vena cava was of normal size with adequate respiratory collapse against an elevated central venous pressure at this time. CONCLUSIONS: Technically difficult study. Normal left ventricular size, wall thickness and wall motion. Normal left atrial size with Doppler evidence of an impairment of LV diastolic function. Current estimated mean left atrial pressure within normal limits. Normal right heart chamber sizes and contraction with Doppler evidence of mild pulmonary hypertension. Normal IVC size and collapse against an elevated central venous pressure. Mild aortic valvular sclerosis and mitral annular thickening without functional valvular abnormality.
--- NOTE | 2016-11-08 12:31 | IPNPDOC ---
Subjective Date Seen The patient was seen on 11/08/16. Subjective Chief Complaint/HPI Patient seen and examined at the bedside. She is on a nonrebreather mask, and unresponsive, but appears comfortable. Objective Physical Examination General Exam: Positive: No Acute Distress Eye Exam: Negative: Sclera icteric ENT Exam: Positive: Atraumatic Chest Exam: Positive: Diminished (shallow breath sounds on auscultation) Heart Exam: Positive: Tachycardic, Normal S1, Normal S2 Abdomen Exam: Positive: Soft, Negative: Tenderness Extremity Exam: Negative: Tenderness, Swelling Psych Exam: Positive: Mental status NL Assessment /Plan Plan/VTE VTE Prophylaxis Ordered?: Yes Plan/Urinary Catheter Reason for insertion/continuin: Critical Pt monitoring Plan s/p Cardiac arrest Severe sepsis secondary to obstructive uropathy from left sided hydronephrosis Acute renal failure Lactic acidosis Leukocytosis Hypoxic respiratory failure Atrial fibrillation with rapid ventricular rate Thrombocytopenia Elevated troponins Metabolic acidosis Sepsis-induced coagulopathy Rhabdomyolysis Hypokalemia The patient was made comfort measures only on 11/07/16. At this time, we will continue to provide supportive care. Hospice has been consulted. VS, I&O, 24H, [facility] Vital Signs/I&O Vital Signs Date Time Temp Pulse Resp B/P (MAP) Pulse Ox O2 Delivery O2 Flow Rate FiO2 11/08/16 08:10 Non-Rebreather 15.0 11/07/16 20:05 24 11/07/16 17:30 123 94/65 (75) 11/07/16 17:00 76 11/07/16 16:00 98.0 I&O- Last 24 Hours up to 6 AM 11/09/16 06:00 Intake Total 0 ml Balance 0 ml Laboratory Data 24H LABS Laboratory Tests 2 11/07/16 16:17: Prothrombin Time 17.8H, Prothromb Time International Ratio 1.43, Activated Partial Thromboplast Time 37.9, Fibrinogen 740H, D-Dimer, Quantitative > 4000.0H 11/07/16 16:26: Bedside Glucose (Misc Panel) 102 11/07/16 18:40: Blood Gas Bicarbonate Standard 11.7L, Arterial Blood pH 7.104*L, Arterial Blood Partial Pressure CO2 38.8, Arterial Blood Partial Pressure O2 290.7H, Arterial Blood Total CO2 13.1L, Arterial Blood HCO3 11.9L, Arterial Blood Base Excess - 16.8L, Arterial Blood Oxygen Saturation 99.5H, Arterial Blood Gas Puncture Site LT RADIAL, Oxygen Delivery Device MECHAN. VENT CBC/BMP Laboratory Tests 11/07/16 16:17 Microbiology Microbiology 11/06/16 Blood Culture - Preliminary, Resulted No growth after 24 hours . All specim... 11/06/16 Blood Culture - Preliminary, Resulted 11/06/16 Gastrointestinal Tract Panel (PCR) - Final, Complete 11/06/16 Urine Culture - Final, Complete Escherichia Coli JASWANT ROSALES MD Nov 08, 2016 12:31
--- NOTE | 2016-11-08 13:18 | IPN ---
DATE: 11/08/2016 When Ms. Teresa went down yesterday for placement of a nephrostomy tube, it sounds as though she coded. At that point, they decided not to proceed with the procedure and to declare the patient comfort management only. She was moved out of the intensive care unit (ICU) and is receiving comfort care. Since the patient had been declining prior to this incident, the family felt that they did not want to be placed in a situation where if she coded again and had significant deficits that we would plan on keeping her alive. I will sign off on this case at this point unless any further urologic input is requested.
--- NOTE | 2016-11-09 05:40 | ECGEPIP ---
Stationary ECG Study [facility] - ED Test Date: 2016-11-06 Pat Name: CHARLES WHALEY Department: Room: - Gender: F Altitude Chamber Technician: sb : 1940 Requested By: DANTE Saldana Order Number: [id number] Reading MD: Alli Duarte Measurements Intervals [place] Rate: 96 P: HI: 0 QRS: 43 QRSD: 97 T: 60 QT: 391 QTc: 496 Interpretive Statements SINUS RHYTHM WITH PACs NO PRIORS Electronically Signed On 11-09-2016 5:39:53 EDT by Alli Duarte
--- NOTE | 2016-11-09 10:11 | IPNPDOC ---
Subjective Date Seen The patient was seen on 11/09/16. Subjective Chief Complaint/HPI Patient seen and examined at bedside this morning. Objective Physical Examination General Exam: Positive: No Acute Distress Eye Exam: Negative: Sclera icteric ENT Exam: Positive: Atraumatic Chest Exam: Positive: Diminished (shallow breath sounds on auscultation) Heart Exam: Positive: Tachycardic, Normal S1, Normal S2 Abdomen Exam: Positive: Soft, Negative: Tenderness Extremity Exam: Negative: Tenderness, Swelling Psych Exam: Positive: Mental status NL Assessment /Plan Plan/VTE VTE Prophylaxis Ordered?: Yes Plan/Urinary Catheter Reason for insertion/continuin: Critical Pt monitoring Plan s/p Cardiac arrest Severe sepsis secondary to obstructive uropathy from left sided hydronephrosis Acute renal failure Lactic acidosis Leukocytosis Hypoxic respiratory failure Atrial fibrillation with rapid ventricular rate Thrombocytopenia Elevated troponins Metabolic acidosis Sepsis-induced coagulopathy Rhabdomyolysis Hypokalemia The patient was made comfort measures only on 11/07/16. At this time, we will continue to provide supportive care. Hospice has been consulted. VS, I&O, 24H, [facility] Vital Signs/I&O Vital Signs Date Time Temp Pulse Resp B/P (MAP) Pulse Ox O2 Delivery O2 Flow Rate FiO2 11/08/16 19:40 Non-Rebreather 15.0 11/07/16 20:05 24 11/07/16 17:30 123 94/65 (75) 11/07/16 17:00 76 11/07/16 16:00 98.0 Laboratory Data Microbiology Microbiology 11/06/16 Blood Culture - Preliminary, Resulted No Growth after 48 hours. All Specime... 11/06/16 Blood Culture - Final, Complete Escherichia Coli 11/06/16 Gastrointestinal Tract Panel (PCR) - Final, Complete 11/06/16 Urine Culture - Final, Complete Escherichia Coli JASWANT ROSALES MD Nov 09, 2016 10:11
[2016-11-09] MEDS: MORPHINE 2 MG/ML 1ML SYRINGE IV PRN ×2 (16:19→22:19)
[2016-11-10] MEDS: MORPHINE 2 MG/ML 1ML SYRINGE IV PRN ×2 (04:55→17:45)
--- NOTE | 2016-11-10 10:35 | IPNPDOC ---
Subjective Date Seen The patient was seen on 11/10/16. Subjective Chief Complaint/HPI Patient seen and examined at the bedside. Objective Physical Examination General Exam: Positive: No Acute Distress Eye Exam: Negative: Sclera icteric ENT Exam: Positive: Atraumatic, Other ENT (bitemporal wasting), Negative: Mucous membr. moist/pink (dry mucous membranes) Chest Exam: Positive: Diminished (shallow breath sounds on auscultation) Heart Exam: Positive: Tachycardic, Normal S1, Normal S2 Abdomen Exam: Positive: Soft, Negative: Tenderness Extremity Exam: Negative: Tenderness, Swelling Psych Exam: Positive: Mental status NL Assessment /Plan Plan/VTE VTE Prophylaxis Ordered?: No Plan/Urinary Catheter Reason for insertion/continuin: Critical Pt monitoring Plan s/p Cardiac arrest Severe sepsis secondary to obstructive uropathy from left sided hydronephrosis E. Coli Bacteremia Acute renal failure Lactic acidosis Leukocytosis Hypoxic respiratory failure Atrial fibrillation with rapid ventricular rate Thrombocytopenia Elevated troponins Metabolic acidosis Sepsis-induced coagulopathy Rhabdomyolysis Hypokalemia The patient was made comfort measures only on 11/07/16. At this time, we will continue to provide supportive care. Hospice has been consulted. VS, I&O, 24H, [facility] Vital Signs/I&O Vital Signs Date Time Temp Pulse Resp B/P (MAP) Pulse Ox O2 Delivery O2 Flow Rate FiO2 11/09/16 20:15 Nasal Cannula 4.0 11/09/16 19:16 95 11/09/16 16:19 28 11/07/16 17:30 123 94/65 (75) 11/07/16 16:00 98.0 Laboratory Data Microbiology Microbiology 11/06/16 Blood Culture - Preliminary, Resulted No Growth after 72 hours. All specime... 11/06/16 Blood Culture - Final, Complete Escherichia Coli 11/06/16 Gastrointestinal Tract Panel (PCR) - Final, Complete 11/06/16 Urine Culture - Final, Complete Escherichia Coli JASWANT ROSALES MD Nov 10, 2016 10:35
[2016-11-11] MEDS: MORPHINE 2 MG/ML 1ML SYRINGE IV PRN ×4 (00:11→20:53)
--- NOTE | 2016-11-11 15:34 | IPN ---
DATE: 11/11/2016 SUBJECTIVE: Patient is seen and examined in the room today. During encounter, patient had lethargy, not able to answer a lot of questions. Per nursing staff, patient's mentation has been waxing and waning and patient continues to have very minimal oral intake. No overnight events are reported. OBJECTIVE: PHYSICAL EXAMINATION: GENERAL: No apparent acute distress. Patient is alert and awake, but unable to maintain prolonged concentration, not able to answer questions, patient not oriented. HEENT: Normocephalic, atraumatic. CARDIOVASCULAR: Positive S1, S2. LUNGS: Diminished breath sounds. ABDOMEN: Soft, nontender. EXTREMITIES: No swelling. ASSESSMENT AND PLAN: 1. Severe sepsis secondary to obstructive uropathy with left-sided hydronephrosis. 2. History of cardiac arrest. 3. Escherichia (E) coli bacteremia. 4. Acute renal failure. 5. Hypoxic respiratory failure. 6. Atrial fibrillation with rapid ventricular response (RVR). 7. Sepsis induced coagulopathy. 8. History of rhabdomyolysis. 9. Lactic acidosis. PLAN: Patient is comfort measures only status. Currently, patient does not have apparent discomfort. Patient continues to have very minimal oral intake. Patient's mentation has been waxing and waning. Patient's prognosis is poor. Continue supportive care.
[2016-11-11] MEDS: LORazepam 2 MG/ML VIAL (J2060) IV PRN (21:12)
[2016-11-12] MEDS: MORPHINE 2 MG/ML 1ML SYRINGE IV PRN ×4 (00:41→22:06)
[2016-11-12] MEDS: MORPHINE 10MG/0.5ML ORAL CONCENTRATE SOLUTION U/D SL PRN ×2 (09:21→18:33)
[2016-11-12] MEDS: LORazepam 2 MG/ML VIAL (J2060) IV PRN (11:41)
--- NOTE | 2016-11-12 15:06 | IPN ---
DATE: 11/12/2016 SUBJECTIVE: No events are reported. The patient still has intermittent altered mental status changes. No significant distress noted. OBJECTIVE: PHYSICAL EXAMINATION: GENERAL: No apparent acute distress. The patient is alert and awake intermittently, unable to maintain prolonged concentration, unable to answer questions. The patient is not oriented. HEENT: Normocephalic, atraumatic. CARDIOVASCULAR: Positive S1, S2. LUNGS: Decreased breath sounds. ABDOMEN: Soft, nontender. EXTREMITIES: No swelling. ASSESSMENT AND PLAN: 1. Severe sepsis secondary to obstructive uropathy with left-sided hydronephrosis. 2. History of cardiac arrest. 3. Escherichia (E) coli bacteremia. 4. Acute renal failure. 5. Hypoxic respiratory failure. 6. Atrial fibrillation with rapid ventricular response (RVR). 7. Sepsis-induced coagulopathy. 8. History of rhabdomyolysis. 9. Lactic acidosis. 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 The patient's prognosis is extremely poor. Currently, the patient does not have apparent discomfort. The patient continues to have very minimal oral intake and very minimal output. Continue on the hospitalist medication regimen.
[2016-11-13] MEDS: MORPHINE 2 MG/ML 1ML SYRINGE IV PRN ×7 (01:19→21:46)
[2016-11-13] MEDS: MORPHINE 10MG/0.5ML ORAL CONCENTRATE SOLUTION U/D SL PRN ×2 (09:42→12:17)
[2016-11-13] MEDS: LORazepam 2 MG/ML VIAL (J2060) IV PRN ×2 (12:17→21:48)
--- NOTE | 2016-11-13 15:40 | IPN ---
DATE: 11/13/2016 SUBJECTIVE: The patient is seen in the room today with her daughter. The patient's daughter tried to feed the patient some apple juice. However, the patient only took a very minimal amount and continued to have very limited oral intake. She does not have any significant output. The patient does have intermittent discomfort and the morphine has been helping her to control the symptoms. During the encounter, the patient does not answer the questions and information obtained from the daughter, who has been present at the bedside. PHYSICAL EXAMINATION: GENERAL: At the time of the encounter, no apparent acute distress. The patient is alert and awake, not able to answer questions, unable to determine the orientation. HEENT: Normocephalic, atraumatic. CARDIOVASCULAR: Positive S1, S2. LUNGS: Decreased breath sounds. ABDOMEN: Soft, nontender. EXTREMITIES: No swelling. ASSESSMENT AND PLAN: 1. Severe sepsis, secondary to obstructive uropathy with left-sided hydronephrosis. 2. History of cardiac arrest. 3. Escherichia (E) coli bacteremia. 4. Acute renal failure. 5. Hypoxic respiratory failure. 6. Atrial fibrillation with rapid ventricular response (RVR). 7. Sepsis-induced coagulopathy. 8. History of rhabdomyolysis. 9. History of lactic acidosis. 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 The patient's prognosis is extremely poor. Currently, hospice medication regimen has been able to make the patient comfortable. The patient has very minimal intake and output.
[2016-11-14] MEDS: MORPHINE 2 MG/ML 1ML SYRINGE IV PRN ×6 (05:39→23:23)
[2016-11-14] MEDS: MORPHINE 10MG/0.5ML ORAL CONCENTRATE SOLUTION U/D SL PRN ×4 (09:00→21:28)
[2016-11-14] MEDS: LORazepam 2 MG/ML VIAL (J2060) IV PRN ×4 (09:11→22:20)
[2016-11-14 11:05] VITALS: BP 94/65
--- NOTE | 2016-11-14 14:03 | IPN ---
DATE OF VISIT: 11/14/2016 SUBJECTIVE: The patient is seen today in the room with her family member and staff. The patient started having increased discomfort requiring more pain medications. The patient also started to note to have rattle like sound. OBJECTIVE: VITAL SIGNS: Temperature 98, pulse 123, respiratory rate 22, blood pressure 94/65, pulse oximetry 95% with 4 liters nasal cannula. GENERAL: The patient is alert and awake. Nonverbal. Not able to follow commands. Unable to determine orientation. HEENT: Normocephalic, atraumatic. LUNGS: Tachypnea. Audible rattle sounds. CARDIOVASCULAR: Positive S1, S2. Tachycardic. ABDOMEN: Soft. EXTREMITIES: No edema. ASSESSMENT AND PLAN: 1. Severe sepsis secondary to obstructive uropathy with left sided hydronephrosis. 2. History of cardiac arrest. 3. E. Coli bacteremia. 4. Acute renal failure. 5. Hypoxic respiratory failure. 6. Atrial fibrillation with rapid ventricular response (RVR). 7. Sepsis-induced coagulopathy. 8. History of rhabdomyolysis. 9. History of lactic acidosis. 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 The patient's prognosis is extremely poor. There is some notable physical deterioration noted in the last 24-48 hours. Continues to have very minimal intake. There is some urine output seen on the Hurd catheter.
[2016-11-14 17:30] VITALS: BP 94/65
[2016-11-15] MEDS: MORPHINE 10MG/0.5ML ORAL CONCENTRATE SOLUTION U/D SL PRN ×6 (00:55→14:09)
--- NOTE | 2016-11-15 13:10 | IPN ---
DATE OF SERVICE: 11/15/2016 SUBJECTIVE: Patient is seen and examined today in the room with [id number]. Patient is not responsive, unable to follow command. Patient was noted to have increased effort of breathing. Patient was found to have some fever by the family member. Also noted patient started to have more increased distress. PHYSICAL EXAMINATION: General: Patient is not oriented, patient is not responsive, patient is not awake. HEENT: Normocephalic, atraumatic. Cardiovascular: Patient has been tachycardic. Respiratory: Tachypneic, clear to auscultation bilaterally. No wheezes appreciated. Abdomen: Soft, nontender. Extremities: No edema. ASSESSMENT AND PLAN: 1. Severe sepsis secondary to obstructive uropathy with left sided hydronephrosis. 2. History of cardiac arrest. 3. E. Coli bacteremia. 4. Acute renal failure. 5. Hypoxic respiratory failure. 6. Atrial fibrillation with rapid ventricular response (RVR). 7. Sepsis induced coagulopathy. 8. Rhabdomyolysis. 9. History of lactic acidosis. 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 In the last 24-48 hours, patient has notable significant deterioration. Patient has started having persistent fever, tachypneic and patient is tachycardic. Has very minimal input. Prognosis extremely poor. Patient has been using frequent dose of morphine to control her discomfort. At this moment, patient may need increase of the frequency of the morphine.
--- NOTE | 2016-11-15 17:15 | DSES ---
DATE OF ADMISSION: 11/06/2016 DATE OF : 11/15/2016 at 2:45 p.m. IMAGE EDITOR: Human Resources Coordinator, Dr. Vinod Funk. KNOWLEDGE ARCHITECT: Dr. Maher. UROLOGIST: Dr. Dorcas Pulliam DISCHARGE DIAGNOSES: 1. Severe sepsis secondary to obstructive uropathy with left-sided hydronephrosis. 2. History of cardiac arrest. 3. Enterococcus coli bacteremia. 4. Acute kidney failure. 6. Hypoxic respiratory failure. 7. Atrial fibrillation with rapid ventricular response. 8. Sepsis-induced coagulopathy. 9. Rhabdomyolysis. 10. Lactic acidosis. HOSPITALIZATION COURSE: Patient is a 76-year-old female admitted to [facility] on 11/06/2016 with altered mental status changes. During the admission, patient was found to have sepsis from urinary tract infection (UTI), and patient also had acute kidney injury with significant lactic acidosis. During the diagnostic workup, patient was found to have large kidney stone in the left ureter, causing left-sided hydronephrosis. Patient was started on intravenous (IV) antibiotics, and nephrology had been consulted to assist in patient's acute renal failure and electrolyte abnormalities. Later, blood culture came back positive for gram-negative rods, later confirmed to be Escherichia (E) coli. Due to severity and complexity of the patient's condition, airborne sensor specialist, Dr. Funk has been also consulted to assist on the case due to the obstructive uropathy. Patient's treatment plan and condition had been continually related to the family member. Later, the family member decided to make the patient comfortable, and patient's status was changed to comfort measures only (CARETAKER) on 11/07/2016. Hospice medication had been started. Patient continued to have very poor oral intake and altered mental status. On at 2:45 p.m. patient was pronounced , and [place] [facility] [place]GE TIME: Greater than 30 minutes.
== END 2016-11-15 14:45 | disposition expired | DRG 871 ==
LOC: EDBD 09:10 → M ED 09:10 → M ED INP 13:55 → M PCU 17:44 → M ICU 11-07 01:59 → M MSPAV 11-07 20:00
PROVIDERS: ADMIT General Practice; ATTEND Internal Medicine
PROC: 30233R1 Transfusion of Nonautologous Platelets into Peripheral Vein, Percutaneous Approach (ICD-10-PCS; principal; 2016-11-07)
PROC: 30233K1 Transfusion of Nonautologous Frozen Plasma into Peripheral Vein, Percutaneous Approach (ICD-10-PCS; 2016-11-07)
DX: A41.51 Sepsis due to Escherichia coli [E. coli] (principal); G93.41 Metabolic encephalopathy; J96.91 Respiratory failure, unspecified with hypoxia; N17.9 Acute kidney failure, unspecified; E87.2 Acidosis; N13.2 Hydronephrosis with renal and ureteral calculous obstruction; J90 Pleural effusion, not elsewhere classified; M62.82 Rhabdomyolysis; D68.8 Other specified coagulation defects; N39.0 Urinary tract infection, site not specified; F03.91 Unspecified dementia, unspecified severity, with behavioral disturbance; I46.9 Cardiac arrest, cause unspecified; R65.20 Severe sepsis without septic shock; D69.6 Thrombocytopenia, unspecified; I48.91 Unspecified atrial fibrillation; Z51.5 Encounter for palliative care; Z87.891 Personal history of nicotine dependence; Z79.82 Long term (current) use of aspirin; Z79.899 Other long term (current) drug therapy; E87.6 Hypokalemia; E83.42 Hypomagnesemia; E16.2 Hypoglycemia, unspecified